=== PATIENT | male | born 1975 | race Caucasian/White ===

== ENCOUNTER 2017-10-05 19:04 | Inpatient (IN) | payer MEDICAID, OTHER ==
[~2017-10-05] VITALS: Ht 175.3 cm; Wt 78.5 kg
[~2017-10-05 19:04] MED LIST: DIVA500T35 PO; GABA-529 PO; LAMO25TA66 PO; LITH300C3 PO; OLAN10TA3 PO; QUET100T PO; SERT50TA12 PO; TRAZ-147 PO
[2017-10-05 21:36] LABS: BASOPHILS % (AUTO) 0.9 % (0.0-2.0); EOSINOPHILS % (AUTO) 3.6 % (1.0-6.0); HEMATOCRIT 46.8 % (41-53); HEMOGLOBIN 16.2 g/dL (13.5-17.5); LYMPHOCYTES # (AUTO) 4.3 K/uL (1.0-4.8); LYMPHOCYTES % (AUTO) 33.2 % (22.0-44.0); MEAN CORPUSCULAR HEMOGLOBIN 33.1 pg (26.0-34.0); MEAN CORPUSCULAR HGB CONC 34.6 G/dL (31.0-37.0); MEAN CORPUSCULAR VOLUME 96 fL (80-100); MONOCYTES # (AUTO) 0.7 K/uL (0.1-1.0); MONOCYTES % (AUTO) 5.7 % (2.0-9.0); NEUTROPHILS # (AUTO) 7.3 K/uL (1.8-7.7); NEUTROPHILS % (AUTO) 56.6 % (40.0-70.0); PLATELET COUNT (AUTO) 299 K/uL (150-450); RED BLOOD CELL COUNT(AUTO) 4.88 MIL/uL (4.50-5.90)
[2017-10-05 21:46] LABS: ANION GAP 9 mmol/L (8-16); CALCIUM, TOTAL 8.8 mg/dL (8.8-10.5); CARBON DIOXIDE 28 mmol/L (22-29); CHLORIDE 106 mmol/L (98-107); CREATININE 1.04 mg/dL (0.60-1.30); GLOMERULAR FILTR. RATE CALC > 60 mL/min (>60); GLUCOSE,RANDOM 79 mg/dL (70-110); POTASSIUM 3.8 mmol/L (3.5-5.1); SODIUM SERUM 143 mmol/L (136-145); UREA NITROGEN, BLOOD 15 mg/dL (7-18)
[2017-10-05 21:50] LABS: LITHIUM 0.55 mmol/L (0.60-1.20)
[2017-10-05 21:52] LABS: ALANINE AMINOTRANSFERASE 35 U/L (12-78); ALBUMIN 4.1 g/dL (3.4-5.0); ALKALINE PHOSPHATASE 94 U/L (46-116); ASPARTATE AMINOTRANSFERASE 25 U/L (15-37); BILIRUBIN,TOTAL 0.2 mg/dL (0.1-1.0); TOTAL PROTEIN, SERUM 7.1 g/dL (6.4-8.2); VALPROIC ACID 12 mcg/mL (50-100)
[2017-10-05 23:52] LABS: AMPHET/METH SCREEN,URINE NEGATIVE (NEGATIVE); BARBITURATE SCREEN, URINE NEGATIVE (NEGATIVE); BENZODIAZEPINES SCREEN,URINE NEGATIVE (NEGATIVE); CANNABINOID SCREEN,URINE NEGATIVE (NEGATIVE); COCAINE SCREEN,URINE NEGATIVE (NEGATIVE); METHADONE SCREEN, URINE NEGATIVE (NEGATIVE); OPIATE SCREEN,URINE NEGATIVE (NEGATIVE)
[2017-10-05 23:58] LABS: PHENCYCLIDINE SCREEN,URINE NEGATIVE (NEGATIVE)
[2017-10-06] MEDS ORDERED: QUEtiapine FUMARATE 100 MG TABLET PO ONE (01:00)
[2017-10-06] MEDS: ZOLPIDEM TARTRATE 10 MG TABLET PO PRN (01:01)
[2017-10-06 03:13] LABS: CHOL/HDL RATIO 2.8 (4.2-7.3); CHOLESTEROL 187 mg/dL (131-200); HDL CHOLESTEROL 66 mg/dL (40-60); LDL CHOL (CALC.) 66 mg/dL (0-130); TRIGLYCERIDES 274 mg/dL (15-150)
[2017-10-06] MEDS: LORazepam 2 MG TABLET PO PRN (07:48)
[2017-10-06] MEDS: HALOPERIDOL 5 MG TABLET PO PRN (07:49)
[2017-10-06 11:05] VITALS: BP 127/85
[2017-10-06] MEDS: LamoTRIgine 100 MG TABLET PO SCH ×2 (13:45→20:30)
[2017-10-06] MEDS: QUEtiapine FUMARATE 100 MG TABLET PO SCH (14:40)
[2017-10-06] MEDS: DIVALPROEX SODIUM 500 MG ER TABLET PO SCH (14:40)
[2017-10-06] MEDS: NICOTINE 21 MG/24 HOUR PATCH TD SCH (14:40)
[2017-10-06] MEDS: QUEtiapine FUMARATE 200 MG TABLET PO SCH (20:30)
[2017-10-06] MEDS: LITHIUM CARBONATE 600 MG CAPSULE PO SCH (20:30)
[2017-10-06 22:14] VITALS: BP 132/71
[2017-10-07] MEDS: HALOPERIDOL 5 MG TABLET PO PRN ×2 (05:10→17:50)
[2017-10-07 05:30] VITALS: BP 123/69
[2017-10-07 08:05] VITALS: BP 115/59
[2017-10-07] MEDS: LamoTRIgine 100 MG TABLET PO SCH ×2 (08:16→21:45)
[2017-10-07] MEDS: QUEtiapine FUMARATE 100 MG TABLET PO SCH (08:16)
[2017-10-07] MEDS: DIVALPROEX SODIUM 500 MG ER TABLET PO SCH (08:17)
[2017-10-07] MEDS: LORazepam 2 MG TABLET PO PRN ×3 (08:17→17:50)
[2017-10-07] MEDS: GABAPENTIN 400 MG CAPSULE PO PRN ×2 (08:17→13:17)
[2017-10-07] MEDS: NICOTINE 21 MG/24 HOUR PATCH TD SCH ×2 (08:17→11:12)
[2017-10-07] MEDS ORDERED: LOPERAMIDE HCL 2 MG CAPSULE PO PRN (09:00)
[2017-10-07] MEDS ORDERED: ALBUTEROL SULFATE HFA 90 MCG/PUFF 8 GM INHALER IH PRN (09:00)
[2017-10-07] MEDS ORDERED: PETROLATUM,WHITE 71 GM JELLY TP PRN (09:00)
[2017-10-07] MEDS ORDERED: ACETAMINOPHEN 325 MG TABLET PO PRN (09:00)
[2017-10-07] MEDS ORDERED: IBUPROFEN 600 MG TABLET PO PRN (09:00)
[2017-10-07] MEDS ORDERED: CloNIDine HCL 0.1 MG TABLET PO PRN (09:00)
[2017-10-07] MEDS ORDERED: BENZOCAINE/MENTHOL LOZENGE MM PRN (09:00)
[2017-10-07] MEDS ORDERED: MAG HYDROX/AL HYDROX/SIMETH ES 30 ML SUSPENSION UDCUP PO PRN (09:00)
[2017-10-07] MEDS ORDERED: ONDANSETRON HCL 4 MG TABLET PO PRN (09:00)
[2017-10-07] MEDS ORDERED: BACITRACIN 28.4 GM OINTMENT TP PRN (09:00)
[2017-10-07] MEDS: FLUOCINONIDE 0.05% 15 GM CREAM TP SCH ×2 (09:00→17:00)
[2017-10-07] MEDS ORDERED: MAGNESIUM HYDROXIDE SUSPENSION 30 ML UDCUP PO PRN (09:00)
[2017-10-07] MEDS: LITHIUM CARBONATE 600 MG CAPSULE PO SCH (21:45)
[2017-10-07] MEDS: QUEtiapine FUMARATE 200 MG TABLET PO SCH (21:45)
[2017-10-07 22:15] VITALS: BP 127/69
[2017-10-08] MEDS: HALOPERIDOL 5 MG TABLET PO PRN ×2 (00:02→06:57)
[2017-10-08] MEDS: ZOLPIDEM TARTRATE 10 MG TABLET PO PRN (00:02)
[2017-10-08 00:04] VITALS: BP 125/91
[2017-10-08] MEDS: LORazepam 2 MG TABLET PO PRN (06:57)
[2017-10-08 08:30] VITALS: BP 125/77
[2017-10-08] MEDS: NICOTINE 21 MG/24 HOUR PATCH TD SCH ×2 (09:00→09:32)
[2017-10-08] MEDS: FLUOCINONIDE 0.05% 15 GM CREAM TP SCH ×2 (09:00→16:26)
[2017-10-08] MEDS: QUEtiapine FUMARATE 100 MG TABLET PO SCH (09:29)
[2017-10-08] MEDS: GABAPENTIN 400 MG CAPSULE PO PRN (09:29)
[2017-10-08] MEDS: LamoTRIgine 100 MG TABLET PO SCH (09:29)
[2017-10-08] MEDS: DIVALPROEX SODIUM 500 MG ER TABLET PO SCH (09:29)
[2017-10-08] MEDS ORDERED: QUET200T PO (14:15)
[2017-10-08] MEDS ORDERED: FLUO15CR2 TP (14:16)
== END 2017-10-08 16:30 | disposition home or self-care (01) | DRG 753 ==
LOC: EMS 19:05 → 3EI 10-06 10:57
PROVIDERS: ADMIT Psychiatry & Neurology Child & Adolescent Psychiatry; ATTEND Psychiatry & Neurology Child & Adolescent Psychiatry
DX: F31.4 Bipolar disorder, current episode depressed, severe, without psychotic features (principal); F41.9 Anxiety disorder, unspecified; F10.10 Alcohol abuse, uncomplicated; F17.200 Nicotine dependence, unspecified, uncomplicated; G47.00 Insomnia, unspecified; H91.90 Unspecified hearing loss, unspecified ear; L40.9 Psoriasis, unspecified; Z88.1 Allergy status to other antibiotic agents; Z88.0 Allergy status to penicillin; Z88.8 Allergy status to other drugs, medicaments and biological substances; Z71.6 Tobacco abuse counseling
CPT/HCPCS: 99285; G0480